=== PATIENT | female | born 1980 | race Caucasian/White ===

== ENCOUNTER 2025-06-02 12:20 | Emergency (ER) | payer BC ==
[~2025-06-02] VITALS: Ht 175.3 cm; Wt 97.5 kg
[2025-06-02 12:30] VITALS: BP 153/100; TEMP 98.3
[2025-06-02] MEDS ORDERED: DOXY100T2 PO (14:41)
[2025-06-02] MEDS ORDERED: CEFTRIAXONE 500 MG VIAL ONE (14:45)
[2025-06-02 14:49] LABS: APPEARANCE,URINE CLEAR (CLEAR); BLOOD, URINE NEGATIVE Ery/uL (NEGATIVE); LEUKOCYTE ESTERASE ,URINE NEGATIVE (NEGATIVE); NITRITE, URINE NEGATIVE (NEGATIVE); UGLUCOSE NEGATIVE (NEGATIVE)
[2025-06-02 14:50] LABS: PREGNANCY TEST URINE QUAL NEGATIVE (NEGATIVE)
[2025-06-02] MEDS: CEFTRIAXONE 500 MG VIAL IM ONE (14:54)
[2025-06-02 14:59] LABS: ADD URINE CULTURE NO; SQUAMOUS EPITHELIAL CELL,UR Few /HPF (None Seen)
[2025-06-02 15:00] LABS: URINE AMORPHOUS URATE Few /HPF (None Seen)
[2025-06-02 15:32] VITALS: O2SAT 98
[2025-06-04 05:11] LABS: CHLAMYDIA TRACHOMATIS NAA Negative (Negative); NEISSERIA GONORRHOEAE NAA Negative (Negative)
== END 2025-06-02 15:32 | disposition home or self-care (01) ==
LOC: ER 12:38
DX: Z11.3 Encounter for screening for infections with a predominantly sexual mode of transmission (principal); R30.0 Dysuria
CPT/HCPCS: 99283; 96372; 84703; 81001; 87491; 87591; J0696